=== PATIENT | female | born 1930 | race Caucasian/White ===

== ENCOUNTER → 2016-12-11 | Outpatient (CLI) | payer OTHER | LOC: FIMAGING 12:46 | PROVIDERS: ATTEND Internal Medicine Hematology & Oncology | DX: N64.4 Mastodynia (principal); Z85.3 Personal history of malignant neoplasm of breast | CPT/HCPCS: 76641; G0204 ==

== ENCOUNTER → 2017-10-21 | Outpatient (CLI) | payer OTHER | LOC: BHFA 09:30 | PROVIDERS: ATTEND Internal Medicine Cardiovascular Disease | DX: R06.02 Shortness of breath (principal); R55 Syncope and collapse | CPT/HCPCS: 78452; 93017; A9500; J2785 ==

== ENCOUNTER → 2017-10-28 | Outpatient (CLI) | payer OTHER | LOC: BHFA 14:45 | PROVIDERS: ATTEND Internal Medicine Cardiovascular Disease | DX: R55 Syncope and collapse (principal); R06.02 Shortness of breath ==

== ENCOUNTER → 2018-05-19 | Outpatient (CLI) | payer OTHER | LOC: FIMAGING 08:31 | PROVIDERS: ATTEND Internal Medicine Hematology & Oncology | DX: Z13.820 Encounter for screening for osteoporosis (principal); M85.89 Other specified disorders of bone density and structure, multiple sites; Z78.0 Asymptomatic menopausal state ==

== ENCOUNTER 2018-07-24 14:53 | Inpatient (IN) | payer OTHER ==
[2018-07-24] MEDS ORDERED: NS 1,000 ML IV ONE (15:01)
--- NOTE | 2018-07-24 15:05 | EDPHY ---
H & P Time Seen by Provider: 07/24/18 15:02 HPI/ROS: HPI CHIEF COMPLAINT: Syncope at rest. HISTORY OF PRESENT ILLNESS: This is a very pleasant 88-year-old female who, presents emergency room after she had a syncopal episode. Patient was in a seated position. She was at a Symposium him. She denies falling asleep. She states she does not remember what happened she woke up with a bunch brought around her however bystanders report that she was unresponsive for 3 min. No CPR. 911 was called. When EMS arrived she was awake and stable vital signs however noted to be hypertensive and brought to the emergency room. Patient arrives to the emergency without any complaints, she denies any chest pain, shortness of breath, abdominal pain, headache, neck pain, numbness tingling or focal weakness. She denies palpitations denies any complaints. She states she feels fine. Past Medical History: Hypertension, diabetes Past Surgical History: No recent surgery Social History: Lives locally Family History: Denies ROS REVIEW OF SYSTEMS: 10 Systems were reviewed and negative with the exception of the elements mentioned in the history of present illness. Exam Constitutional triage nursing summary reviewed, vital signs reviewed, awake/ alert. 212/124 Eyes normal conjunctivae and sclera, EOMI, PERRLA. HENT normal inspection, atraumatic, moist mucus membranes, no epistaxis, neck supple/ no meningismus, no raccoon eyes. Respiratory clear to auscultation bilaterally, normal breath sounds, no respiratory distress, no wheezing. Cardiovascular rate normal, regular rhythm, no murmur, no edema, distal pulses normal. Gastrointestinal soft, non-tender, no rebound, no guarding, normal bowel sounds, no distension, no pulsatile mass. Genitourinary no CVA tenderness. Musculoskeletal no midline vertebral tenderness, full range of motion, no calf swelling, no tenderness of extremities, no meningismus, good pulses, neurovascularly intact. Skin pink, warm, & dry, no rash, skin atraumatic. Neurologic awake, alert and oriented x 3, AAOx3, moves all 4 extremities equally, motor intact, sensory intact, CN II-XII intact, normal cerebellar, normal vision, normal speech. Psychiatric normal mood/affect. Heme/Lymph/Immune no lymphadenopathy. Differential Diagnosis: Includes but is not limited to in a particular order vasovagal syncope, cardiac arrhythmia complete heart block, sick sinus syndrome , electrolyte disturbance, dehydration Medical Decision Making: Plan for this patient IV establishment IV fluid bolus , director of cardiac cath lab, EKG, troponin, electrolytes, chest x-ray, basic blood work and re-evaluate. Re-evaluation: Very concerning that the patient had a syncopal episode while in a seated position, without any preceding symptoms. EKG interpretation by me on record in [employer] system. Impression time of EKG 1505, sinus rhythm rate of 59, T-wave flattening lead 1 aVL however no other signs of acute ischemia. It is similar to previous EKG 01/20/2015. EKG was performed patient does not have chest pain. The EKG electronic read the top reads consider inferior injury ST elevation however I disagree with this reading. There is no ST elevation inferior pattern. CT angiogram of the chest was negative for pulmonary embolism. Please see full dictation by Dr. Colon. Patient troponin negative. The patient had a CT angiogram of the chest due to positive D-dimer, and syncope. No evidence aortic dissection or AAA or PE. 1732: Patient re-evaluated this time she is resting comfortably without any complaints. She denies any chest pain or shortness of breath. Blood pressure as per improved 170s over 90s. Plan for this patient should be admitted to the hospital as she had a syncopal episode unprovoked while seated. She noted be rather hypertensive here. 2nd EKG obtain time 3:05 p.m., sinus rhythm rate of 59 nonspecific T-wave abnormalities lateral leads 1 and aVL, without any other signs of acute ischemia on similar to previous EKGs. Again the computer's reading ST elevation inferior leads however I disagree. Patient has no chest pain. And I do not appreciate acute ST elevation. I have consult the hospitalist service Dr. Pereira, who agrees to admit the patient. Plan for admission for hypertension, syncope. Her blood pressure slowly improving here on its own. I am trying to obtain her home medications at this time as she is unsure what medications she is on. At time admission 1737 she has no chest pain or shortness of breath resting comfortably without complaints. Very pleasant Source: Patient, EMS - Medical/Surgical History Hx Asthma: No Hx Chronic Respiratory Disease: No Hx Diabetes: Yes Hx Cardiac Disease: No Hx Renal Disease: No Hx Cirrhosis: No Hx Alcoholism: No Hx HIV/AIDS: No Hx Splenectomy or Spleen Trauma: Yes Other PMH: HTN, HYPOTHYROID, SHOGREN'S D/O, DEPRESSION, REMOVED SPLEEN, OVARIAN CANCER, DM2 - Social History Smoking Status: Never smoked Constitutional: Initial Vital Signs Temperature (C) 36.4 C 07/24/18 14:52 Heart Rate 67 07/24/18 14:52 Respiratory Rate 18 07/24/18 14:52 Blood Pressure 210/124 H 07/24/18 14:52 O2 Sat (%) 99 07/24/18 14:52 O2 Delivery Mode Room Air Allergies/Adverse Reactions: ketorolac tromethamine [From Acular] Allergy (Severe, Verified 04/08/12 10:40) Swelling/neck,face,throat Home Medications: Medication Instructions Recorded Dextran 70/Hypromellose [Tears 1 drop EACHEYE BID PRN 07/19/14 Naturale-II Eye Drops] Herbals/Supplements -Info Only 1 tab PO AD 07/19/14 Anastrozole [Arimidex 1 mg (*)] 1 mg PO DAILY 07/24/18 Calcium Carbonate [Tums 500MG (*)] 1,000 mg PO HS 07/24/18 Citalopram [CeleXA] 20 mg PO DAILY 07/24/18 Levothyroxine [Synthroid 75 mcg 75 mcg PO DAILY 07/24/18 (*)] Losartan Potassium [Cozaar 25 mg 25 mg PO HS 07/24/18 (*)] Medical Decision Making - Data Points Laboratory Results: Laboratory Results 07/24/18 14:56 07/24/18 14:56 Medications Given: Calcium Carbonate (Tums) 1,000 mg PO HS [facility] Stop: 01/20/19 20:59 Last Admin: 07/24/18 20:16 Dose: 1,000 mg Hydralazine HCl (Apresoline) 10 mg IVP Q6 PRN PRN Reason: SBP>160 Stop: 01/20/19 19:47 Last Admin: 07/24/18 23:45 Dose: 10 mg Discontinued Medications Sodium Chloride (Ns) 1,000 mls @ 0 mls/hr IV EDNOW ONE; Wide Open PRN Reason: Protocol Stop: 07/24/18 15:02 Last Admin: 07/24/18 15:28 Dose: 1,000 mls Losartan Potassium (Cozaar) 25 mg PO HS [facility] Stop: 01/20/19 20:59 Last Admin: 07/24/18 20:15 Dose: 25 mg Losartan Potassium (Cozaar) 50 mg PO HS [facility] Stop: 01/20/19 20:59 Last Admin: 07/24/18 21:52 Dose: Not Given Point of Care Test Results: Chemistry 07/24/18 15:03 POC Troponin I 0.03 ng/mL ng/mL (0.00-0.08) Departure - Departure Disposition: [facility] Inpatient Acute Clinical Impression: Hypertension Qualifiers: Hypertension type: essential hypertension Qualified Code(s): I10 - Essential ( primary) hypertension Syncope Qualifiers: Syncope type: unspecified Qualified Code(s): R55 - Syncope and collapse Condition: Fair
[2018-07-24 15:16] LABS: PLATELET COUNT 181 10^3/uL (150-400)
[2018-07-24 15:29] LABS: INR 0.93 (0.83-1.16); PROTIME(PATIENT) 12.7 SEC (12.0-15.0)
[2018-07-24] MEDS ORDERED: IOPAMIDOL (ISOVUE 370) 100 ML BTL IV ONE (16:28)
[2018-07-24] MEDS ORDERED: hydrALAZINE 20 MG/ML VIAL IVP PRN (19:48)
[2018-07-24] MEDS: CALCIUM CARBONATE 500 MG CHEWABLE TAB PO SCH (20:16)
[2018-07-24] MEDS ORDERED: LOSARTAN POTASSIUM 25 MG TAB PO SCH ×3 (21:00→21:42)
--- NOTE | 2018-07-24 21:22 | GHP ---
[f rep st] HISTORY AND PHYSICAL DATE OF ADMISSION: 07/24/2018 CHIEF COMPLAINT: Syncope. HISTORY: The patient is an 88-year-old female, who was sitting at a meeting today. 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 They were listening to a speaker, whom she found very interesting, when suddenly, she slumped in the chair, her head went down, but she did not fall out of the chair. She became unresponsive for a period of 3 minutes. When she awoke from the episode, she asked her , "Where am I"? 911 was called. She has now returned to baseline and has no furth er symptoms. She has absolutely no memory of the event, and this is [facility]. She had a similar episode yesterday that was a little shorter, lasting about 1 minute, while she and her were driving in the car. She also has recurrent spells of lightheadedness without t rue syncope that happen with a degree of frequency. There is no chest pain or shortness of breath. There are no focal neurologic symptoms. She is unclear about her baseline blood pressure control. S he recently changed primary care doctors. She thinks her last systolic blood pressure in the office might have been 180. PAST MEDICAL HISTORY: 1. Breast cancer. 2. Ovarian cancer. 3. Hypertension. 4. Diabetes. 5. Sjogren's. 6. Status post splenectomy. MEDICATIONS: Please see computerized record for full detailed list. ALLERGIES: Ketoralac. SOCIAL HISTORY: No smoking. No alcohol. She lives with her . REVIEW OF SYSTEMS: Complete review of systems obtained. Review of systems negative regarding consti tutional, HEENT, GI, pulmonary, vascular, , hematology, skin, musculoskeletal, endocrine, psych, ex cept for positives and negatives as noted in HPI. FAMILY HISTORY: Reviewed, noncontributory to presenting complaint. PHYSICAL EXAMINATION: GENERAL: Well-developed, well-nourished female in no acute distress. VITAL S IGNS: Temperature is 36.5, pulse 62, blood pressure 210/124, satting 98% on room air. EYES: Normal conjunctivae. Pupils equal and reactive to light. ENT: Normal ears, nose. Hearing intact. Normal teeth. Oropharynx moist. NECK: Trachea midline. No thyromegaly. CHEST: Normal respiratory effor t. LUNGS: Clear to auscultation bilaterally. CARDIOVASCULAR: Regular rhythm. No murmur. EXTREMIT IES: No lower extremity edema. ABDOMEN: Soft, nontender. No hepatosplenomegaly. SKIN: Warm, dry , intact. No rash. MUSCULOSKELETAL: No cyanosis or clubbing. Strength 5/5 upper and lower extremi ties. NEURO: Cranial nerves intact. Normal sensation to light touch. PSYCH: Alert and oriented x 3. Normal mood and affect. Normal judgment and insight. Normal memory. LABORATORY DATA: White count 7.95, hematocrit 43.3, platelets 181. Sodium 138, potassium 4.3, chlor james 105, bicarb 26, BUN 26, creatinine 0.8, glucose 92. LFTs are negative. BNP is 491. Troponins n egative. INR 0.93. EKG viewed by me. My personal interpretation is possible mild ST elevation inferiorly, although this is old compared to previous EKG. CT angiogram of the chest is negative for pulmonary embolus. Ther e is some possible CHF. ASSESSMENT/PLAN: 1. Syncope. I suspect this is related to her severe uncontrolled hypertension. Will check a head C T. Will check an echocardiogram and a TSH and watch her on telemetry. 2. Hypertensive urgency. Will prescribe IV hydralazine as needed for systolic blood pressure greate r than 160. I will double her Cozaar dose. She may need alternative agents added to that, as well. 3. Breast and ovarian cancers. These are either in remission or cured, and she is on no therapy oth er than Arimidex. 4. Diabetes type 2, diet controlled. CODE STATUS: DNR, per patient request. ADMISSION STATUS: Observation. Re-evaluate tomorrow. DVT PROPHYLAXIS: She is high risk. Will place her on subcu Lovenox. /[id number]/MODL
--- NOTE | 2018-07-25 02:13 | HOSPPROG ---
Hospitalist Progress Note Assessment/Plan: XC: Notified by RN about patient's telemetry demonstrating multiple 20+ second pauses. Patient is relatively asymptomatic and hemodynamically stable. I discussed the case with Dr. Butcher of cardiology who recommended transcutaneous pacer pads be put in place, make NPO status, and obtain echocardiogram in the morning. These orders have naomi placed. Cardiology will evaluate this morning for likely pacemaker. Objective: Vital Signs Temp Pulse Resp BP Pulse Ox 36.8 C 64 14 175/77 H 93 07/24/18 23:34 07/24/18 23:34 07/24/18 23:34 07/24/18 23:34 07/24/18 23:34 07/23/18 07/24/18 07/25/18 05:59 05:59 05:59 Intake Total 200 Balance 200 PT 12.7 SEC (12.0-15.0) 07/24/18 14:56 INR 0.93 (0.83-1.16) 07/24/18 14:56 ICD10 Worksheet Patient Problems: Problems Problem Status Onset Osteoarthritis of knee Acute Syncope Acute Hypertension Acute
[2018-07-25] MEDS ORDERED: BACITRACIN IRRIGATION/NS 50,000 UNITS/1,000 ML BTL IRR ONE (08:55)
[2018-07-25] MEDS ORDERED: NS 1,000 ML IV ONE (08:55)
[2018-07-25] MEDS ORDERED: DIAZEPAM 5 MG TAB PO ONE (08:55)
[2018-07-25] MEDS ORDERED: diphenhydrAMINE 25 MG CAP PO ONE (08:55)
[2018-07-25] MEDS ORDERED: ceFAZolin 2 GM/DEXTROSE 100 ML IV ONE (08:55)
[2018-07-25] MEDS ORDERED: ENOXAPARIN 40 MG/0.4 ML SYR SC SCH (09:00)
[2018-07-25] MEDS ORDERED: fentaNYL 100 MCG/2 ML INJ ONE (09:58)
[2018-07-25] MEDS ORDERED: MIDAZOLAM 2 MG/2 ML VIAL ONE (09:58)
[2018-07-25] MEDS ORDERED: LIDO/EPI 1% **for epidural** 30 ML SDV ONE (09:58)
[2018-07-25] MEDS ORDERED: LIDOCAINE 1% 300 MG/30 ML SDV ONE ×2 (09:58→12:49)
[2018-07-25] MEDS ORDERED: IOPAMIDOL (ISOVUE-300) 100 ML BTL ONE (09:59)
[2018-07-25] MEDS ORDERED: BUPIVACAINE 0.5% 30 ML SDV ONE (09:59)
[2018-07-25] MEDS ORDERED: hydrALAZINE 20 MG/ML VIAL ONE (10:47)
--- NOTE | 2018-07-25 11:04 | ASMTCMCOM ---
CM Note CM Note Notes: Pt is an 88 yo F, DNR. Presents after synope at a program at . No therapies ordered at this time. discharge plan is TBD at this time. CM to follow. Plan: TBD Date Signed: 07/25/2018 11:04 AM Electronically Signed By:ANGELA Ospina
--- NOTE | 2018-07-25 12:10 | PDCARCONS ---
Cardiology Consult Reason for Consult: Syncope, asystole. Chief Complaint: Syncope. Requesting Physician: Dr. Kim Pereira. History of Present Illness: This is a very pleasant, remarkably healthy 88-year-old female seen in consultation on the progressive care unit. She has no prior cardiac history. Over the last 48 hr she has experienced 2 episodes of syncope. The day prior to admission she had a very transient episode of syncope while she was a passenger riding in her car. She had abrupt loss of consciousness that she really was not aware of that lasted for only a matter of seconds. There was no antecedent chest pain, palpitations or dizziness. On the day of admission she was at a talk at the [facility] [employer]. Apparently, she slumped over in her seat and lost consciousness for up to 2 or 3 min. This was a witnessed event without associated generalized tonic-clonic seizure activity, loss of bowel or bladder control. She awakened spontaneously and was oriented. As result, she was transported via EMS to the emergency department here. She was admitted and monitored overnight. On telemetry she has had at least 3 episodes of asystole. These have lasted upwards of 20-25 seconds at a time and are associated with sinus arrest. These occurred during sleep and 1 occurred while she was on the toilet. Apparently, she had no associated loss of consciousness. Historically she has active and healthy. She notes no history of chest discomfort, chest pain or chest heaviness. She had an episode of syncope many years ago although nothing in the recent past. She is not on any sinus or AV mary agents. She has had no recent adjustments to her medications and has had no intercurrent illnesses. History Information - Allergies/Home Medication List Allergies/Adverse Reactions: ketorolac tromethamine [From Acular] Allergy (Severe, Verified 04/08/12 10:40) Swelling/neck,face,throat Home Medications: Dextran 70/Hypromellose [Tears Naturale-II Eye Drops] 1 drop EACHEYE BID PRN [Last Taken 07/24/18 08:00] Herbals/Supplements -Info Only 1 tab PO AD 07/19/14 [Last Taken 07/24/18 08:00] Anastrozole [Arimidex 1 mg (*)] 1 mg PO DAILY 07/24/18 [Last Taken 07/24/18 08: 00] Calcium Carbonate [Tums 500MG (*)] 1,000 mg PO HS 07/24/18 [Last Taken 07/23/18 20:00] Citalopram [CeleXA] 20 mg PO DAILY 07/24/18 [Last Taken 07/24/18 08:00] Levothyroxine [Synthroid 75 mcg (*)] 75 mcg PO DAILY 07/24/18 [Last Taken 08:00] Losartan Potassium [Cozaar 25 mg (*)] 25 mg PO HS 07/24/18 [Last Taken 07/23/18 20:00] I have personally reviewed and updated: family history, medical history, social history, surgical history Past Medical History: - Past Medical History Additional medical history: Sjogren's syndrome, history of breast cancer status post left breast lumpectomy, history of ovarian cancer, hypertension, diabetes, Sjogren's syndrome, splenectomy. - Surgical History Reports: no pertinent surgical hx - Family History Positive for: non-pertinent - Social History Smoking Status: Never smoked Alcohol Use: None Drug Use: None Additional social history: She and her live independently. They been in [place] for 50 years. Physical Exam Physical Exam: Temp Pulse Resp BP Pulse Ox 36.8 C 61 18 174/75 H 95 07/25/18 07:55 07/25/18 07:55 07/25/18 07:55 07/25/18 07:55 07/25/18 07:55 O2 (L/minute) 2 Constitutional: no apparent distress, appears nourished, not in pain Eyes: PERRL, anicteric sclera, EOMI Ears, Nose, Mouth, Throat: moist mucous membranes, hearing normal, ears appear normal, no oral mucosal ulcers Cardiovascular: regular rate and rhythym, no murmur, rub, or gallop, No edema Peripheral Pulses: 2+: carotid (R), carotid (L) Respiratory: no respiratory distress, no rales or rhonchi, clear to auscultation Gastrointestinal: normoactive bowel sounds, soft, non-tender abdomen, no palpable masses Genitourinary: no bladder fullness, no bladder tenderness Skin: warm, normal color, no rashes or abrasions, no fluctuance, no induration, No mottled Musculoskeletal: full muscle strength, no muscle tenderness, normal joint ROM, no joint effusions Psychiatric: interacting appropriately, not anxious, not encephalopathic, thought process linear Lymph, Heme, Immunologic: no cervical LAD, no supraclavicular LAD Lab and Imaging 07/24/18 14:56 07/24/18 14:56 WBC 7.95 10^3/uL (3.80-9.50) 07/24/18 14:56 RBC 4.41 10^6/uL (4.18-5.33) 07/24/18 14:56 Hgb 13.8 g/dL (12.6-16.3) 07/24/18 14:56 Hct 43.3 % (38.0-47.0) 07/24/18 14:56 MCV 98.2 fL (81.5-99.8) 07/24/18 14:56 MCH 31.3 pg (27.9-34.1) 07/24/18 14:56 MCHC 31.9 g/dL (32.4-36.7) L 07/24/18 14:56 RDW 15.5 % (11.5-15.2) H 07/24/18 14:56 Plt Count 181 10^3/uL (150-400) 07/24/18 14:56 MPV 13.1 fL (8.7-11.7) H 07/24/18 14:56 Neut % (Auto) 52.1 % (39.3-74.2) 07/24/18 14:56 Lymph % (Auto) 26.8 % (15.0-45.0) 07/24/18 14:56 [place] % (Auto) 16.6 % (4.5-13.0) H 07/24/18 14:56 Eos % (Auto) 3.6 % (0.6-7.6) 07/24/18 14:56 Baso % (Auto) 0.6 % (0.3-1.7) 07/24/18 14:56 Nucleat RBC Rel Count 0.0 % (0.0-0.2) 07/24/18 14:56 Absolute Neuts (auto) 4.14 10^3/uL (1.70-6.50) 07/24/18 14:56 Absolute Lymphs (auto) 2.13 10^3/uL (1.00-3.00) 07/24/18 14:56 Absolute Monos (auto) 1.32 10^3/uL (0.30-0.80) H 07/24/18 14:56 Absolute Eos (auto) 0.29 10^3/uL (0.03-0.40) 07/24/18 14:56 Absolute Basos (auto) 0.05 10^3/uL (0.02-0.10) 07/24/18 14:56 Absolute Nucleated RBC 0.00 10^3/uL (0-0.01) 07/24/18 14:56 Immature Gran % 0.3 % (0.0-1.1) 07/24/18 14:56 Immature Gran # 0.02 10^3/uL (0.00-0.10) 07/24/18 14:56 PT 12.7 SEC (12.0-15.0) 07/24/18 14:56 INR 0.93 (0.83-1.16) 07/24/18 14:56 APTT 27.4 SEC (23.0-38.0) 07/24/18 14:56 D-Dimer 0.75 ug/mLFEU (0.00-0.50) H 07/24/18 14:56 Sodium 138 mEq/L (135-145) 07/24/18 14:56 Potassium 4.3 mEq/L (3.5-5.2) 07/24/18 14:56 Chloride 105 mEq/L (97-110) 07/24/18 14:56 Carbon Dioxide 26 mEq/l (22-31) 07/24/18 14:56 Anion Gap 7 mEq/L (6-14) 07/24/18 14:56 BUN 26 mg/dL (7-23) H 07/24/18 14:56 Creatinine 0.8 mg/dL (0.6-1.0) 07/24/18 14:56 Estimated GFR > 60 07/24/18 14:56 Glucose 92 mg/dL (70-100) 07/24/18 14:56 Calcium 10.3 mg/dL (8.5-10.4) 07/24/18 14:56 Magnesium 2.2 mg/dL (1.6-2.3) 07/24/18 14:56 Total Bilirubin 0.4 mg/dL (0.1-1.4) 07/24/18 14:56 Conjugated Bilirubin 0.2 mg/dL (0.0-0.5) 07/24/18 14:56 Unconjugated Bilirubin 0.2 mg/dL (0.0-1.1) 07/24/18 14:56 AST 30 IU/L (14-46) 07/24/18 14:56 ALT 31 IU/L (9-52) 07/24/18 14:56 Alkaline Phosphatase 84 IU/L (38-126) 07/24/18 14:56 POC Troponin I 0.03 ng/mL (0.00-0.08) 07/24/18 15:03 Troponin I < 0.012 ng/mL (0.000-0.034) 07/25/18 03:02 NT-Pro-B Natriuret Pep 491 pg/mL (0-450) H 07/24/18 14:56 Total Protein 6.6 g/dL (6.3-8.2) 07/24/18 14:56 Albumin 3.8 g/dL (3.5-5.0) 07/24/18 14:56 TSH 7.640 uIU/mL (0.465-4.680) H 07/25/18 03:02 A/P Assessment: This is a remarkably healthy and pleasant 88-year-old female admitted to the hospital with 2 episodes of syncope over the last 48 hr. Her baseline ECG indicates normal sinus rhythm however on telemetry overnight she has had at least 3 episodes of pauses in excess of 20 sec in duration. She clearly has evidence of sinus node dysfunction. Interestingly, there was no ventricular escape or junctional escape. Her labs all appear normal. I do not think that her bradycardia is an occult manifestation of underlying ischemia. She is not on any medications that could be precipitating these events. Plan: After lengthy discussion with the patient was decided to place a permanent dual- chamber pacemaker. The risks, benefits and alternatives were discussed with her. She is left-handed however does not participate in any activities that would preclude placing the device in the left infraclavicular fossa therefore this is the access that we have chosen. Following that procedure I anticipate that she will be able to be discharged home within 24 hr. Review of Systems Review of Systems: - Review of Systems Constitutional: no symptoms reported EENTM: no symptoms reported Respiratory: no symptoms reported Cardiac: see HPI Gastrointestinal/Abdominal: no symptoms reported Genitourinary: no symptoms Musculoskelatal: no symptoms Skin: no symptoms Neurological: see HPI Hematologic/Lymphatic: no symptoms reported Immunologic/allergic: no symptoms reported All Other Systems: Reviewed and Negative
--- NOTE | 2018-07-25 12:32 | ECHO ---
[email or web address] [address] Main: [phone] Fax: [email or web address] Echocardiogram Name: DEJUAN AMDRID MR#: [id number] Study Date: 07/25/2018 Study Time: 10:27 AM Date of : 1930 Age: 88 year(s) Height: 162.6 cm (64 in.) Weight: 53.52 kg (118 lb.) BSA: 1.56 m2 Gender: Female Examination: Echo Indication: Cardiac: syncope, pre pacemaker Image Quality: Contrast: Requested by: Kim Pereira BP: 151 mmHg/81 mmHg Heart Rate: 61 bpm Rhythm: Indication: Cardiac: syncope, pre pacemaker Procedure Staff Rn Acute: Ashkan Carrion RDCS Reading Physician: Owen Jj MD Requesting Provider: Conclusions: Normal size left ventricle. Mild concentric LV hypertrophy. Global hypercontractility of the left ventricle. EF is 82 %. No regional wall motion abnormality. Grade 1 diastolic dysfunction (abnormal relaxation). The left atrium is moderately dilated. The right atrium is mildly dilated. There is mild thickening of the mitral valve leaflets. Mild mitral valve regurgitation is present. Trivial to mild tricuspid valve regurgitation. The pulmonary artery pressure is normal. Trivial pericardial effusion. Measurements: Chambers Valvular Assessment AV/MV Valvular Assessment TV/PV Normal Normal Normal Name Value Range Name Value Range Name Value Range Ao Therese (MM): 2.6 cm (2.2 cm-3.7 AV Vmax: 1.37 m/s (1 m/s-1.7 TR Vmax: 1.91 mm/s ( - ) cm) m/s) TR PGmax: 15 mmHg ( - ) IVSd (2D): 0.8 cm (0.6 cm-1.1 AV maxP mmHg ( - ) syst. PAP: 20 mmHg ( - ) cm) LVOT Vmax: 1.02 m/s (0.7 m/s-1.1 PV Vmax: 0.76 m/s (0.6 m/s-0.9 LVDd (2D): 3.6 cm (3.9 cm-5.3 m/s) m/s) cm) MV E Vmax: 0.91 m/s ( - ) PV PGmax: 2 mmHg ( - ) LVDs (2D): 1.8 cm (2.1 cm-4 MV A Vmax: 1.10 m/s ( - ) cm) MV E/A: 0.83 ( - ) LVPWd (2D): 1.0 cm ( - ) LVEF (2D): 82 (>=54 %) Continued Measurements: Patient: DEJUAN MADRID Study Date: 07/25/2018 Page 1 of 2 10:27 AM Chambers Valvular Assessment AV/MV Valvular Assessment TV/PV Name Value Name Value Name Value LADs Lon.9 cm MV E' Septal: 0.06 m/s CVP (est.): 5 mmHg LA Area: 23.7 cm2 MV E/E' Septal: 14.60 LA Volume: 79 ml MV E/E' Lateral: 19.00 LA Volume Index: 50.6 ml/m2 Findings: Left Ventricle: Normal size left ventricle. Mild concentric LV hypertrophy. Global hypercontractility of the left ventricle. EF is 82 %. No regional wall motion abnormality. Grade 1 diastolic dysfunction (abnormal relaxation). Right Ventricle: Normal size right ventricle. Normal RV function. Left Atrium: The left atrium is moderately dilated. Right Atrium: The right atrium is mildly dilated. Mitral Valve: There is mild thickening of the mitral valve leaflets. Mild mitral valve regurgitation is present. Aortic Valve: The aortic valve is tri-leaflet. There is no aortic valve regurgitation. No aortic valve stenosis is present. Tricuspid Valve: The tricuspid valve appears normal. Trivial to mild tricuspid valve regurgitation. The pulmonary artery pressure is normal. Pulmonic Valve: The pulmonic valve is normal in appearance and function. Aorta: The aorta is normal. Pericardium: Trivial pericardial effusion. There is pericardial fat. (No Signature Object) Patient: DEJUAN MADRID Study Date: 07/25/2018 Page 2 of 2 10:27 AM [id number]
--- NOTE | 2018-07-25 13:49 | HOSPPROG ---
Hospitalist Progress Note Assessment/Plan: 88 year old female with pmh of BRCA, HTN, hypothyroid, admitted with syncope and overnight with 20+ second sinus pauses. Syncope- with 20 second pauses noted on telemetry overnight. Patient was asymptomatic with this. Tele strips reviewed which do show substantial, significant asystolic pauses. Cardiology has been consulted I discussed the case with Cardiology and they have taken the patient for permanent pacemaker placement. -pacer placement -postop management -monitor on telemetry Hypertension- on losartan. Hypothyroid- takes Synthroid at home. TSH was very mildly elevated 7.6. Will check free T4 Hx of BRCA- on femara. continue PPX- SCDS, heparin per cardiology Fluids- restart diet after procedure lytes- Keep K over 4, mag over 2 Nutrition- NPO for pacer Cor- DNR Dispo- change to inpatinet for sinus pauses and pacer placement. Subjective: no dizziness, chest pain or other complaints. Objective: Vital Signs Temp Pulse Resp BP Pulse Ox 36.8 C 61 18 174/75 H 95 07/25/18 07:55 07/25/18 07:55 07/25/18 07:55 07/25/18 07:55 07/25/18 07:55 07/24/18 07/25/18 07/26/18 05:59 05:59 05:59 Intake Total 425 550 Balance 425 550 PT 12.7 SEC (12.0-15.0) 07/24/18 14:56 INR 0.93 (0.83-1.16) 07/24/18 14:56 - Physical Exam Constitutional: no apparent distress, appears nourished, not in pain Eyes: PERRL, anicteric sclera, EOMI Ears, Nose, Mouth, Throat: moist mucous membranes, hearing normal, ears appear normal, no oral mucosal ulcers Cardiovascular: regular rate and rhythym, no murmur, rub, or gallop Respiratory: no respiratory distress, no rales or rhonchi, clear to auscultation Gastrointestinal: normoactive bowel sounds, soft, non-tender abdomen, no palpable masses Genitourinary: no bladder fullness, no bladder tenderness, no renal bruits Skin: no rashes or abrasions, no fluctuance, no induration Musculoskeletal: full muscle strength, no muscle tenderness, normal joint ROM Neurologic: AAOx3, sensation intact bilaterally Psychiatric: interacting appropriately, not anxious, not encephalopathic, thought process linear Lymph, Heme, Immunologic: no cervical LAD, no supraclavicular LAD ICD10 Worksheet Patient Problems: Problems Problem Status Onset Hypertension Acute Syncope Acute Osteoarthritis of knee Acute
[2018-07-25] MEDS: LEVOTHYROXINE 75 MCG TAB PO SCH (15:24)
[2018-07-25] MEDS: ANASTROZOLE 1 MG TAB PO SCH (15:24)
[2018-07-25] MEDS: CITALOPRAM 20 MG TAB PO SCH (15:24)
--- NOTE | 2018-07-25 15:39 | CPIP ---
[f rep st] INVASIVE CARDIAC PROCEDURE ADDENDUM Immediately following implantation of the procedure and after closing the pacemaker pocket, it was noted that the patient had dislodged the atrial lead. As a result, the patient was prepped and draped again in the usual sterile fashion. An additional lidocaine infiltration was performed around the wound. The pacemaker pocket was then opened sharply. The device was removed from the pocket. The atrial lead was disconnected from the header. This allowed us to reposition the atrial lead in the right atrial appendage and screw it back into place. The lead was again tested. The patient took several deep breaths and coughed. The lead was noted to be stable at this point. This lead was then secured back to the pacemaker pocket floor using two 0 Ethibond sutures. The lead was then reconnected to the header and the device was placed back in the pocket following irrigation. The wound was then closed in three layers initially , using two layers of interrupted suture with 2-0 and 3-0 Vicryl and finally running 3-0 Vicryl for the skin. Steri-Strips and a dry dressing were applied. COMPLICATIONS None. DEVICE INFORMATION There has been no change to the device information. DATE OF PROCEDURE: 07/25/2018 INDICATIONS: The patient is 88 years old and very healthy. She was admitted to the hospital yesterday afternoon after experiencing now her 3rd episode of syncope. Her baseline ECG was normal. Overnight, she has been monitored and has experienced multiple episodes of sinus arrest with periods of asystole lasting in excess of 10-15 seconds at a time. PROCEDURE: Implantation of a dual-chamber pacemaker. TECHNIQUE: Following informed consent, and in the fasting state, and following the admission of prophylactic antibiotics, the patient was brought to the laboratory tester. A venogram was performed which easily identified a widely patent axillary subclavian system. 2% lidocaine was infiltrated in the skin below the left clavicle. Using a #10 blade, a 3 cm incision was then made which was carried down to the prepectoral fascia bluntly. The pacemaker pocket was then fashioned using blunt dissection and all bleeders were cauterized using electrocautery. Antibiotic-soaked sponge was then placed in the pocket. Using modified Seldinger technique and 2 separate sticks, access was gained to the axillary vein at the level of the first rib and 2 individual 0.035 J-wires were positioned. Using the first of these wires, a 6-Georgian sheath was placed. This allowed us to position the right ventricular lead deep into the right ventricular apex. The lead was screwed into place and the sheath torn away. The redundant portion of this lead was then secured to the pacemaker pocket floor using 0 Ethibond. Using the remaining J-wire, a second 6-Georgian sheath was placed. This allowed us to position the right atrial lead in the right atrial appendage. This lead was then screwed into place and the sheath torn away. The lead was then secured to the pacemaker pocket floor using 0 Ethibond. Both leads were then interrogated. Adequate capture and sensing were noted with stable lead impedances. The antibiotic-soaked sponge was then removed from the pocket and the pocket irrigated with antibiotic-containing solution. The device was brought to the field and both leads identified by serial number and affixed to the header according to topology teacher guidelines. The device and the redundant portions of both leads were then placed in the pocket. The pocket was then closed with 3 layers, initially using 2 layers of interrupted suture with 2-0 and 3-0 Vicryl, and finally a running 3-0 Vicryl for the skin. Steri- Strips and a dry dressing were applied. COMPLICATIONS: None. DEVICE INFORMATION: The pacemaker is a Biotronik Edora 8 DR-T, model number 270202, serial number [id number]. The right atrial lead is a Biotronik Solia S 45 , model number 538823, serial number [id number]. Right ventricular lead is Biotronik Solia S 53, model number 812135, serial number [id number]. In the atrium, lead impedance was 567 ohms with sensed P waves of 3.4 mV and a capture threshold 0.7 V at 0.4 msec. In the ventricle, lead impedance of 657 ohms with R-waves that were sensed at 14 mV and a capture of 0.6 V at 0.4 msec. DISPOSITION: The patient will be returned to her room. She will be monitored overnight. I anticipate that she will likely be discharged home in the morning. /[id number]/MODL and [id number]/MODL [facility]
--- NOTE | 2018-07-25 18:11 | PDMN ---
Medical Necessity Medical necessity: [facility] M157 Electrophysiologic Study and Implantable Cardioverter-Defibrillator (ICD) Insertion, A-1day: 83 yo presents w/ syncope w / noted hypertensive urgency 210/124. Initially OBS for workup and immediate tx of HTN and admitted for cont tele monitoring but overnight pt developed multi 20+ second pauses, cardiology consulted, urgent pacer placement completed , pt requiring additional MN for ongoing monitoring on tele and postop management of new pacer. Hx breast and ovarian ca, HTN, DM, Sjogren's, splenectomy. Change to IP status 07/25/18@1458 per MD order.
--- NOTE | 2018-07-25 19:52 | CPEKG ---
Test Reason : OPEN Blood Pressure : / mmHG Vent. Rate : 059 BPM Atrial Rate : 058 BPM P-R Int : 164 ms QRS Dur : 083 ms QT Int : 432 ms P-R-T Axes : 064 -14 083 degrees QTc Int : 428 ms Sinus rhythm Probable left atrial enlargement Nonspecific T abnormalities, lateral leads ST elevation, consider inferior injury Confirmed by Guille Isabel ([id number]) on 07/25/2018 7:51:32 PM Referred By: Guille Isabel Confirmed By:Guille Isabel
--- NOTE | 2018-07-25 19:52 | CPEKG ---
Test Reason : OPEN Blood Pressure : / mmHG Vent. Rate : 056 BPM Atrial Rate : 057 BPM P-R Int : 182 ms QRS Dur : 081 ms QT Int : 453 ms P-R-T Axes : 059 -19 085 degrees QTc Int : 438 ms Sinus rhythm Left atrial enlargement Borderline left axis deviation Borderline T wave abnormalities ST elevation, consider inferior injury Confirmed by Guille Isabel (21) on 07/25/2018 7:51:31 PM Referred By: Guille Isabel Confirmed By:Guille Isabel
[2018-07-25] MEDS: CALCIUM CARBONATE 500 MG CHEWABLE TAB PO SCH (21:12)
[2018-07-26] MEDS: CITALOPRAM 20 MG TAB PO SCH (08:10)
[2018-07-26] MEDS: LEVOTHYROXINE 75 MCG TAB PO SCH (08:10)
[2018-07-26] MEDS: ANASTROZOLE 1 MG TAB PO SCH (08:10)
[2018-07-26] MEDS ORDERED: LOSARTAN POTASSIUM 50 MG TAB PO SCH (10:33)
--- NOTE | 2018-07-26 11:43 | PDCARPN ---
Cardiology Progress Note Chief Complaint: syncope/sick sinus syndrome Assessment/Plan: Assessment: 88 y/o F with PMH htn, breast cancer, admitted for 2 episodes of syncope without injury. Noted to have 20-25 second pauses with at least 3 asystolic episodes. S/p ppm. Chart reviewed. 1st encounter. ECG personally interpreted shows SR with iRBBB. #. SSS: s/p ppm device interrogation today with normal functioning will arrange for outpatient follow up in device clinic #. htn: BP appears to not be well-controlled reviewed options with patient and she is agreeable to an increased dose of Losartan will need clinical follow up for adequacy of control Plan: OK to discharge from cardiology perspective. We will arrange her outpatient follow up. 07/26/18 11:05 Subjective: No pain. Feels well. Reviewed/Discussed With: hospitalist (Dr. Trent) Objective: Vital Signs (8 Hrs) Temp Pulse Resp BP Pulse Ox 07/26/18 07:54 98.0 F 93 13 164/90 H 94 07/26/18 04:00 98.4 F 78 16 160/88 H 97 Intake/Output (24 Hrs) 07/25/18 07/26/18 07/27/18 05:59 05:59 05:59 Intake Total 1275 Balance 1275 Intake: Oral (ml) 225 IV Infused (ml) 1050 Ns 1,000 ml @ As Directed 1050 IV ONCALL ONE Rx#: [id number] Other: Number of Voids Toilet 4 Result Diagrams: 07/24/18 14:56 07/24/18 14:56 Telemetry: reviewed Echocardiogram: revoewed normal LVEF, unremarkable valve structure and function - Physical Exam Constitutional: no apparent distress Eyes: PERRL, anicteric sclera Ears, Nose, Mouth, Throat: moist mucous membranes Cardiovascular: regular rate and rhythm, No systolic murmur Respiratory: clear to auscultate bilat, no crackles Gastrointestinal: normoactive bowel sounds Skin: other (device site without ecchymosis/erythema/edema) Neurologic: AAOx3 ICD10 Worksheet Patient Problems: Problems Problem Status Onset Hypertension Acute Syncope Acute Osteoarthritis of knee Acute
[2018-07-26 12:38] VITALS: BP 150/79
--- NOTE | 2018-07-26 16:01 | ASMTLACE ---
TERRENCE Length of stay for Answers: 1 day current admission Comorbidities - select Answers: Any tumor (including all that apply lymphoma or leukemia) Diabetes (uncontrolled or controlled) Opioid dependence / Chronic pain Other Notes: HTN; Hypothyroid # of Emergency department Answers: 1-2 visits in the last 6 months Social determinants Answers: Mental health diagnosis (anxiety, depression, pers onality disorders, etc.) Score: 13 Date Signed: 07/26/2018 04:01 PM Electronically Signed By:Lady Maza RN
--- NOTE | 2018-07-26 16:03 | ASMTDCNOTE ---
Case Management Discharge Discharge Order Complete? Answers: Yes Patient to Obtain Answers: Independently Medications Transportation Arranged Answers: Family/Friends Family Notified Answers: Yes Discharge Comments Notes: Discharged to home no current needs. Date Signed: 07/26/2018 04:03 PM Electronically Signed By:Lady Maza RN
--- NOTE | 2018-07-26 16:29 | ASDISCHSUM ---
Discharge Information Plan Status:Home with No Needs Medically Cleared to Leave:07/25/2018 Discharge Date:07/25/2018 CM D/C Disposition:Home, Routine, Self-Care ADT D/C Disposition:Home, Routine, Self-Care Projected Discharge Date:07/25/2018 Transportation at D/C: Discharge Delay Reason: Follow-Up Date:07/25/2018 Discharge Slot: Final Diagnosis: Placement Information Patient Contact Information Contact Name:SORIN Relationship:Susana Address:[address] City:[place] Alternate Phone: [facility]/Zip Code:[place] [address] Email: Financial Information Financial Class:Medicare Primary Plan Desc:MEDICARE INPATIENT Primary Plan Number:[id number] Secondary Plan Desc:[facility] Secondary Plan Number:[id number] Assessment Information BC CM Progress Note CM Note CM Note Notes: Pt is an 88 yo F, DNR. Presents after synope at a program at . No therapies ordered at this time. discharge plan is TBD at this time. CM to follow. Plan: TBD Date Signed: 07/25/2018 11:04 AM Electronically Signed By:ANGELA Ospina LACE LACE Length of stay for Answers: 1 day current admission Comorbidities - select Answers: Any tumor (including all that apply lymphoma or leukemia) Diabetes (uncontrolled or controlled) Opioid dependence / Chronic pain Other Notes: HTN; Hypothyroid # of Emergency department Answers: 1-2 visits in the last 6 months Social determinants Answers: Mental health diagnosis (anxiety, depression, pers onality disorders, etc.) Score: 13 Date Signed: 07/26/2018 04:01 PM Electronically Signed By:Lady Maza RN Case Management Discharge Plan Note Case Management Discharge Discharge Order Complete? Answers: Yes Patient to Obtain Answers: Independently Medications Transportation Arranged Answers: Family/Friends Family Notified Answers: Yes Discharge Comments Notes: Discharged to home no current needs. Date Signed: 07/26/2018 04:03 PM Electronically Signed By:Lady Maza RN Intervention Information
--- NOTE | 2018-07-26 18:08 | PDDCSUM ---
Discharge Summary Discharge Summary: Discharge diagnosis Syncope Bradycardia Sinus node dysfunction History of breast cancer Hypothyroid Patient is a remarkably healthy 88-year-old female with past medical history of breast cancer and hypothyroid who presented after suffering a syncopal episode. She was monitor on telemetry the night of her admission and had multiple episodes of sinus pauses lasting over 20 sec. Cardiology was consulted felt that patient ultimately needed a pacemaker placed. A pacemaker was placed on eventfully and the patient had no further episodes and no further arrhythmias noted on telemetry. She was discharged home to follow up with Cardiology to ensure that her pacer site was healing properly. Disposition Home independent in good condition I spent over 30 min on the discharge of this patient
== END 2018-07-26 16:46 | disposition home or self-care (01) | DRG 244 ==
LOC: EDUNIT# → F2W 18:40 → OBSVTOIN 07-25 14:58
PROVIDERS: ADMIT Internal Medicine; ATTEND Internal Medicine
DX: I49.5 Sick sinus syndrome (principal); R00.1 Bradycardia, unspecified; E03.9 Hypothyroidism, unspecified; E86.9 Volume depletion, unspecified; E11.9 Type 2 diabetes mellitus without complications; Z85.3 Personal history of malignant neoplasm of breast; Z66 Do not resuscitate; Z85.43 Personal history of malignant neoplasm of ovary
CPT/HCPCS: 84484-ER; C1785; C1898; G0378; J0360; J0690; J2250; J3010; Q9967